=== PATIENT | female | born 1945 | race Caucasian/White ===

== ENCOUNTER → 2019-08-30 07:44 | Day surgery (SDC) | payer MEDICARE, OTHER ==
[~2019-08-30] VITALS: Ht 160 cm; Wt 65.5 kg
[~2019-08-30 07:44] MED LIST: LISINOPRIL20 MG PO; PROTONIX40 MG PO
[2019-08-30 08:11] LABS: HEMATOCRIT 46.2 % (36.0-48.0); HEMOGLOBIN 15.2 g/dL (12-16); MCH 31.5 pg (26.0-34.0); MCHC 32.9 g/dL (31.0-37.0); MCV 95.7 fL (80.0-100.0); MEAN PLATELET VOLUME 9.7 fL (7.4-10.4); RBC 4.83 10x6/uL (4.00-5.40); RDW 14.1 % (11.5-14.5); WBC 5.4 10x3/uL (4.8-10.8)
[2019-08-30 08:22] VITALS: BP 132/72; Ht 160 cm; Wt 65.5 kg
--- NOTE | 2019-08-30 11:53 | NUR ---
1135 ALL DC CRITERIA MET. TAKEN DOWN VIA W/C AND ASSISTED TO CAR WITH SON. ADVISED TO CALL OR COME BACK IF ANY PROBLEMS.
--- NOTE | 2019-08-31 09:42 | OP ---
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 POSTOPERATIVE DIAGNOSES: 1. 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 2. Minimal recurrence of the polyp. 3. Moderate sigmoid diverticulosis. PROCEDURES: 1. Total colonoscopy to cecum. 2. Hot biopsy forceps polypectomy times 1. SURGEON: Evelyn Cunha MD PRESCRIPTION BENEFIT SPECIALIST: None. BLOOD LOSS: Minimal. ANESTHESIA: IV sedation. COMPLICATIONS: None. The prep was inadequate. ENDOSCOPIC COURSE: The patient was conveyed to endoscopy suite electively on 08/30/2019. IV sedation was induced by the anesthesia staff. The patient was placed in the [place] position. A digital rectal examination was performed. A colonoscope was inserted through the anus. It was easily advanced to the cecum. I irrigated in the cecum extensively. I utilized not only normal imaging, but also a narrow band imaging. I identified only one small area of recurrence. This was removed in its entirety utilizing the hot biopsy forceps polypectomy technique. I then slowly withdrew the endoscope. I irrigated and aspirated extensively. I dragged the folds. A retroflexed view was obtained in the rectum. I then unretroflexed the scope and removed it under direct vision. I will see the patient in my office in 2-3 weeks to discuss the results of the biopsy. I will plan for her next colonoscopy to take place in 2 years. If she has significant recurrence of the polyp at that time I may recommend a laparoscopic cecectomy. TRANSINT:[id number] Voice Confirmation ID: [id number] DOCUMENT ID: [id number] OPERATIVE REPORT [id number] DONAVONBRIANNE EVELYN CUNHA MD at 0942 CC: Brandin NOBLES DAVID [id number] DICTATION DATE: 08/30/19 1121 CABLE OPERATOR: 08/30/[address] [facility] [place], [place] 08/30/19 [facility] [address] [place] [address]
== END | disposition home or self-care (01) ==
LOC: D.OPS 08-02 08:00
PROVIDERS: Anesthesiology; ATTEND Surgery
DX: D12.0 Benign neoplasm of cecum (principal); K57.30 Diverticulosis of large intestine without perforation or abscess without bleeding; I10 Essential (primary) hypertension; F17.200 Nicotine dependence, unspecified, uncomplicated